=== PATIENT | female | born 1985 | race Caucasian/White ===

== ENCOUNTER 2024-10-03 19:25 | Emergency (ER) | payer OTHER ==
[~2024-10-03] VITALS: Ht 162.6 cm; Wt 65.0 kg
[2024-10-03 19:28] VITALS: TEMP 36.9; O2SAT 100
[2024-10-03 19:44] VITALS: BP 108/68; PULSE 126; RESP 22; O2SAT 98
== END 2024-10-03 19:52 | disposition home or self-care (01) ==
LOC: ER 19:25
DX: G40.909 Epilepsy, unspecified, not intractable, without status epilepticus (principal)
CPT/HCPCS: 99283